=== PATIENT | male | born 1960 | race Caucasian/White ===

== ENCOUNTER 2020-06-08 01:15 | Emergency (ER) | payer OTHER | END 2020-06-08 16:12 | LOC: ERS 01:15 → EEVIPCON 01:15 → ERS 16:12 | DX: K72.90 Hepatic failure, unspecified without coma (principal); R41.82 Altered mental status, unspecified; E11.9 Type 2 diabetes mellitus without complications; K21.9 Gastro-esophageal reflux disease without esophagitis; D64.9 Anemia, unspecified; Z79.84 Long term (current) use of oral hypoglycemic drugs; Z79.899 Other long term (current) drug therapy | CPT/HCPCS: 36415; 82140; 93005; 94760 ==